=== PATIENT | male | born 1955 | race Caucasian/White ===

== ENCOUNTER 2017-07-31 15:42 | Emergency (ER) | payer OTHER ==
[~2017-07-31] VITALS: Ht 180.3 cm; Wt 85.0 kg
[2017-07-31 15:46] VITALS: BP 142/76; PULSE 81; RESP 13; TEMP 97.8; O2SAT 97
[2017-07-31] MEDS ORDERED: SODIUM CHLOR 0.9% 1000 ML INJ 1,000 ML IV SCH (16:41)
[2017-07-31] MEDS ORDERED: SODIUM CHLORIDE 0.9% FLUSH 10 ML FLUSH IV FLUSH PRN (16:45)
--- NOTE | 2017-07-31 16:46 | PD ---
HPI Chief Complaint: Abdominal Pain Time Seen by Provider: 16:27 Travel History International Travel<30 days: No Contact w/Intl Traveler<30days: No Traveled to known affect area: No History of Present Illness HPI The patient is a 62-year-old male who presents emergency department for left lower quadrant and suprapubic abdominal pain that started 3 days ago, on Wednesday. The pain is dull, achy, worse with palpation and urination. He does state when he strains to urinate he has discomfort in the affected area but denies any outright dysuria, frequency, urgency, or hematuria. He denies any associated nausea or vomiting. The patient thought he was constipated, took medications for constipation and had a bowel movement earlier today at 2: 30 which was normal. He denies any history of previous abdominal surgeries, nephrolithiasis, or diverticulitis. He denies any associated fever, chills, or sweats. Symptoms are moderate. PFSH Past Medical History Medical History: Denies Significant Hx Medical other: Yes (some groin pain in the past ) ?: Not Past Surgical History Narrative Surgical [place] tooth extraction Surgical History: No Previous Surgery Social History Alcohol Use: Yes (occasionally ) Tobacco Use: No Substance Use: No Allergies-Medications (Allergen,Severity, Reaction): Coded Allergies: No Known Allergies (Verified Allergy, Unknown, 07/31/17) Reported Meds & Prescriptions Reported Meds & Active Scripts Active No Active Prescriptions or Reported Medications Review of Systems Except as stated in HPI: all other systems reviewed are Neg General / Constitutional: No: Fever Cardiovascular: No: Chest Pain or Discomfort Respiratory: No: Shortness of Breath Gastrointestinal: Positive: Abdominal Pain, No: Nausea, Vomiting Genitourinary: Positive: Pelvic Pain, No: Dysuria, Discharge Physical Exam Narrative GENERAL: Awake, alert, nontoxic-appearing 62-year-old male who appears his stated age and is in no acute respiratory distress. SKIN: Focused skin assessment warm/dry. HEAD: Atraumatic. Normocephalic. EYES: Pupils equal and round. No scleral icterus. No injection or drainage. ENT: No nasal bleeding or discharge. Mucous membranes pink and moist. NECK: Trachea midline. No JVD. CARDIOVASCULAR: Regular rate and rhythm. No murmur appreciated. RESPIRATORY: No accessory muscle use. Clear to auscultation. Breath sounds equal bilaterally. GASTROINTESTINAL: Abdomen soft, tender palpation suprapubic and left lower quadrant. No guarding or rigidity. MUSCULOSKELETAL: No obvious deformities. No clubbing. No cyanosis. No edema. NEUROLOGICAL: Awake and alert. No obvious cranial nerve deficits. Motor grossly within normal limits. Normal speech. PSYCHIATRIC: Appropriate mood and affect; insight and judgment normal. Data Data Last Documented VS Vital Signs Date Time Temp Pulse Resp B/P (MAP) Pulse Ox O2 Delivery O2 Flow Rate FiO2 07/31/17 17:28 95 Room Air 07/31/17 15:46 97.8 81 13 Orders Orders Complete Blood Count With Diff (07/31/17 16:41) Comprehensive Metabolic Panel (07/31/17 16:41) Lipase (07/31/17 16:41) Lactic Acid (07/31/17 16:41) Urinalysis - C+S If Indicated (07/31/17 16:41) Ct Abd/Pel W/O Iv Contrast (07/31/17 16:41) Iv Access Insert/Monitor (07/31/17 16:41) Ecg Monitoring (07/31/17 16:41) Oximetry (07/31/17 16:41) Sodium Chlor 0.9% 1000 Ml Inj (Ns 1000 M (07/31/17 16:41) Sodium Chloride 0.9% Flush (Ns Flush) (07/31/17 16:45) Ciprofloxacin (Cipro) (07/31/17 18:45) Metronidazole (Flagyl) (07/31/17 18:45) Labs Laboratory Tests Test 07/31/17 16:45 07/31/17 17:25 White Blood Count 6.8 TH/MM3 Red Blood Count 5.11 MIL/MM3 Hemoglobin 14.2 GM/DL Hematocrit 41.9 % Mean Corpuscular Volume 82.0 FL Mean Corpuscular Hemoglobin 27.8 PG Mean Corpuscular Hemoglobin Concent 33.9 % Red Cell Distribution Width 12.9 % Platelet Count 210 TH/MM3 Mean Platelet Volume 8.6 FL Neutrophils (%) (Auto) 63.5 % Lymphocytes (%) (Auto) 26.4 % Monocytes (%) (Auto) 8.5 % Eosinophils (%) (Auto) 1.3 % Basophils (%) (Auto) 0.3 % Neutrophils # (Auto) 4.3 TH/MM3 Lymphocytes # (Auto) 1.8 TH/MM3 Monocytes # (Auto) 0.6 TH/MM3 Eosinophils # (Auto) 0.1 TH/MM3 Basophils # (Auto) 0.0 TH/MM3 CBC Comment DIFF FINAL Differential Comment Blood Urea Nitrogen 13 MG/DL Creatinine 1.31 MG/DL Random Glucose 92 MG/DL Total Protein 6.9 GM/DL Albumin 3.8 GM/DL Calcium Level 8.7 MG/DL Alkaline Phosphatase 77 U/L Aspartate Amino Transf (AST/SGOT) 23 U/L Alanine Aminotransferase (ALT/SGPT) 32 U/L Total Bilirubin 1.9 MG/DL Sodium Level 140 MEQ/L Potassium Level 3.9 MEQ/L Chloride Level 106 MEQ/L Carbon Dioxide Level 26.7 MEQ/L Anion Gap 7 MEQ/L Estimat Glomerular Filtration Rate 55 ML/MIN Lactic Acid Level 0.9 mmol/L Lipase 104 U/L Urine Color LIGHT-YELLOW Urine Turbidity CLEAR Urine pH 5.0 Urine Specific Barry 1.006 Urine Protein NEG mg/dL Urine Glucose (UA) NEG mg/dL Urine Ketones NEG mg/dL Urine Occult Blood NEG Urine Nitrite NEG Urine Bilirubin NEG Urine Urobilinogen LESS THAN 2.0 MG/DL Urine Leukocyte Esterase NEG Urine RBC LESS THAN 1 /hpf Urine WBC 1 /hpf Urine Mucus FEW /lpf Microscopic Urinalysis Comment CULT NOT INDICATED MDM Medical Decision Making Medical Screen Exam Complete: Yes Emergency Medical Condition: Yes Medical Record Reviewed: Yes Interpretation(s) Laboratory Tests Test 07/31/17 16:45 07/31/17 17:25 White Blood Count 6.8 TH/MM3 Red Blood Count 5.11 MIL/MM3 Hemoglobin 14.2 GM/DL Hematocrit 41.9 % Mean Corpuscular Volume 82.0 FL Mean Corpuscular Hemoglobin 27.8 PG Mean Corpuscular Hemoglobin Concent 33.9 % Red Cell Distribution Width 12.9 % Platelet Count 210 TH/MM3 Mean Platelet Volume 8.6 FL Neutrophils (%) (Auto) 63.5 % Lymphocytes (%) (Auto) 26.4 % Monocytes (%) (Auto) 8.5 % Eosinophils (%) (Auto) 1.3 % Basophils (%) (Auto) 0.3 % Neutrophils # (Auto) 4.3 TH/MM3 Lymphocytes # (Auto) 1.8 TH/MM3 Monocytes # (Auto) 0.6 TH/MM3 Eosinophils # (Auto) 0.1 TH/MM3 Basophils # (Auto) 0.0 TH/MM3 CBC Comment DIFF FINAL Differential Comment Blood Urea Nitrogen 13 MG/DL Creatinine 1.31 MG/DL Random Glucose 92 MG/DL Total Protein 6.9 GM/DL Albumin 3.8 GM/DL Calcium Level 8.7 MG/DL Alkaline Phosphatase 77 U/L Aspartate Amino Transf (AST/SGOT) 23 U/L Alanine Aminotransferase (ALT/SGPT) 32 U/L Total Bilirubin 1.9 MG/DL Sodium Level 140 MEQ/L Potassium Level 3.9 MEQ/L Chloride Level 106 MEQ/L Carbon Dioxide Level 26.7 MEQ/L Anion Gap 7 MEQ/L Estimat Glomerular Filtration Rate 55 ML/MIN Lactic Acid Level 0.9 mmol/L Lipase 104 U/L Urine Color LIGHT-YELLOW Urine Turbidity CLEAR Urine pH 5.0 Urine Specific Barry 1.006 Urine Protein NEG mg/dL Urine Glucose (UA) NEG mg/dL Urine Ketones NEG mg/dL Urine Occult Blood NEG Urine Nitrite NEG Urine Bilirubin NEG Urine Urobilinogen LESS THAN 2.0 MG/DL Urine Leukocyte Esterase NEG Urine RBC LESS THAN 1 /hpf Urine WBC 1 /hpf Urine Mucus FEW /lpf Microscopic Urinalysis Comment CULT NOT INDICATED Last Impressions Abdomen/Pelvis CT 07/31/17 1641 Signed Impressions: Service Date/Time: Wednesday, July 31, 2017 18:00 - CONCLUSION: 1. Abnormal induration of the fat in the midline pelvis adjacent to the mid sigmoid colon. No drainable fluid collections seen. No evidence of free intraperitoneal gas. The findings suggest an inflammatory process. No significant diverticula seen radiographically. 2. Right hydrocele. The Shar Appiah MD Differential Diagnosis Differential diagnosis includes diverticulitis, nephrolithiasis, UTI, atypical appendicitis, constipation, sigmoid volvulus. Narrative Course IV was established, labs are drawn and sent, and the patient was placed on cardiac telemetry monitoring and continuous pulse oximetry monitoring. The patient declined pain medications, IV fluids were started. Noncontrast CT of the abdomen and pelvis was performed to evaluate for diverticulitis. Labs are unremarkable. UA is unremarkable. White count is normal. Lactic acid is unremarkable. CT reveals induration of the fat just adjacent to the sigmoid colon, no obvious large diverticula. Patient's physical examination is consistent with diverticulitis, induration of the surrounding fat may support diverticulitis versus inflammation of the mesentery. The patient was administered Cipro and Flagyl. He will be provided a copy of his CT results and lab results at discharge, is advised to follow-up with a primary physician. He is advised to return if symptoms worsen or progress or he develops fever or inability to tolerate oral antibiotics. The patient agrees and understands. Diagnosis Primary Impression: Abdominal pain Qualified Codes: R10.10 - Upper abdominal pain, unspecified Additional Impression: Diverticulitis Patient Instructions: General Instructions Additional Instructions: Medications as directed. Follow-up with your primary physician. Return if symptoms worsen or progress. Return for inability to tolerate oral antibiotics , fever, progressing symptoms. Med/Other Pt SpecificInfo: Prescription(s) given Scripts Hydrocodone-Acetaminophen ([place]) 5 Mg-325 Mg Tab 1 TAB PO Q6H Y for PAIN, #12 TAB 0 Refills Prov: Saeed Zuniga MD 07/31/17 Metronidazole (Flagyl) 500 Mg Tab 500 MG PO BID for Infection for 7 Days, #14 TAB 0 Refills Prov: Saeed Zuniga MD 07/31/17 Ciprofloxacin (Cipro) 500 Mg Tab 500 MG PO BID for Infection for 7 Days, #14 TAB 0 Refills Prov: Saeed Zuniga MD 07/31/17 Disposition: 01 DISCHARGE HOME Condition: Stable Saeed Zuniga MD Jul 31, 2017 16:46
[2017-07-31 17:04] LABS: AUTOMATED NEUTROPHIL # 4.3 TH/MM3 (1.8-7.7); BASOPHIL % 0.3 % (0.0-2.0); EOSINOPHIL # 0.1 TH/MM3 (0-0.4); EOSINOPHIL % 1.3 % (0.0-4.0); HEMATOCRIT 41.9 % (39.0-51.0); HEMOGLOBIN 14.2 GM/DL (13.0-17.0); LYMPH % 26.4 % (9.0-44.0); LYMPHOCYTE # 1.8 TH/MM3 (1.0-4.8); MEAN CORPUSCULAR HEMOGLOBIN 27.8 PG (27.0-34.0); MEAN CORPUSCULAR HGB CONC 33.9 % (32.0-36.0); MEAN PLATELET VOLUME 8.6 FL (7.0-11.0); MONO % 8.5 % (0.0-8.0); MONOCYTE # 0.6 TH/MM3 (0-0.9); NEUT % 63.5 % (16.0-70.0); PLATELET COUNT 210 TH/MM3 (150-450); RED BLOOD COUNT 5.11 MIL/MM3 (4.50-5.90); RED CELL DISTRIBUTION WIDTH 12.9 % (11.6-17.2); WHITE BLOOD COUNT 6.8 TH/MM3 (4.0-11.0)
[2017-07-31 17:28] VITALS: O2SAT 95
[2017-07-31 17:30] LABS: ALBUMIN 3.8 GM/DL (3.4-5.0); AST (GOT) 23 U/L (15-37); BICARBONATE 26.7 MEQ/L (21.0-32.0); BLOOD UREA NITROGEN 13 MG/DL (7-18); CALCIUM 8.7 MG/DL (8.5-10.1); CHLORIDE 106 MEQ/L (98-107); CREATININE 1.31 MG/DL (0.60-1.30); GLOMERULAR FILTRATION RATE 55 ML/MIN (>89); GLUCOSE,RANDOM 92 MG/DL (74-106); SODIUM (NA) 140 MEQ/L (136-145)
[2017-07-31 17:34] LABS: ALKALINE PHOSPHATASE 77 U/L (45-117); ALT (GPT) 32 U/L (12-78); TOTAL BILIRUBIN ADULT 1.9 MG/DL (0.2-1.0); TOTAL PROTEIN 6.9 GM/DL (6.4-8.2)
[2017-07-31 17:57] LABS: BILIRUBIN, URINE NEG (NEG); BLOOD, URINE NEG (NEG); GLUCOSE,URINE NEG (NEG); KETONE, URINE NEG (NEG); MUCUS URINE FEW /lpf (OCC); NITRITE,URINE NEG (NEG); URINE COLOR LIGHT-YELLOW (YELLW/STRAW); URINE LEUKOCYTE ESTERASE NEG (NEG)
--- NOTE | 2017-07-31 18:30 | RADRPT ---
EXAM DATE/TIME: 07/31/2017 18:00 [facility] COMPARISON: No previous studies available for comparison. INDICATIONS : Lower region abdomen pain for three days. ORAL CONTRAST: No oral contrast ingested. RADIATION DOSE: 15.34 CTDIvol (mGy) MEDICAL HISTORY : None SURGICAL HISTORY : None. ENCOUNTER: Initial ACUITY: 3 days PAIN SCALE: 7/10 LOCATION: Bilateral lower quadrant TECHNIQUE: Volumetric scanning of the abdomen and pelvis was performed. Using automated exposure control and ad justment of the mA and/or kV according to patient size, radiation dose was kept as low as reasonably achievable to obtain optimal diagnostic quality images. DICOM format image data is available electro nically for review and comparison. FINDINGS: The examination is performed without intravenous and without oral contrast. There is abnormal indura tion of the fat in the midline pelvis anterior to the mid sigmoid colon with multiple lacy areas of i nduration. No evidence of free fluid. No evidence of free intraperitoneal gas. No definite diverti cula seen in the sigmoid colon. Right hydrocele. No inguinal adenopathy. No evidence of free fluid in the pelvis. No dilated loops of small large bowel. The appendix is identified in the right lower quadrant and has a normal appea ramirez. No calcified gallstones. No evidence of hydronephrosis or calcified renal stones. The abdom inal aorta is normal in dimension. The visualized lower lungs are clear. No evidence for bony detai l demonstrate the osseous structures to be intact. CONCLUSION: 1. Abnormal induration of the fat in the midline pelvis adjacent to the mid sigmoid colon. No draina ble fluid collections seen. No evidence of free intraperitoneal gas. The findings suggest an inflam matory process. No significant diverticula seen radiographically. 2. Right hydrocele. The Shar Appiah MD on July 31, 2017 at 18:24 Board Certified Radiologist. This report was verified electronically.
[2017-07-31] MEDS ORDERED: METR-1 PO (18:43)
[2017-07-31] MEDS ORDERED: CIPR-9 PO (18:43)
[2017-07-31] MEDS ORDERED: NORC5TAB PO (18:43)
[2017-07-31] MEDS ORDERED: metroNIDAZOLE 500 MG TAB PO ONE (18:45)
[2017-07-31] MEDS ORDERED: CIPROFLOXACIN 500 MG TAB PO ONE (18:45)
== END 2017-07-31 19:03 | disposition home or self-care (01) ==
LOC: NEPE 15:42
DX: R10.10 Upper abdominal pain, unspecified (principal); K57.92 Diverticulitis of intestine, part unspecified, without perforation or abscess without bleeding; N43.3 Hydrocele, unspecified
CPT/HCPCS: 74176; 80053; 81001; 83605; 83690; 85025; 96360; 96361; 99284; J7030